=== PATIENT | male | born 1950 | race Caucasian/White ===

== ENCOUNTER 2020-09-24 01:24 | Emergency (ER) | payer MEDICARE, SELFPAY ==
--- NOTE | ~2020-09-24 | XR_ITS ---
XR chest 2V DATE: 09/24/2020 02:01 INDICATION: Palpitations TECHNIQUE: PA and lateral views COMPARISON: 08/16/2014 PA and lateral chest FINDINGS: There is bilateral hyperinflation consistent with chronic obstructive pulmonary disease. Th ere is bilateral upper lobe chronic volume loss and apical scarring, present on 08/16/2014. No pulmonary infiltrate or consolidation or pulmonary mass lesion is evident. Normal heart size. No hilar or mediastinal enlargement. IMPRESSION: COPD Chronic bilateral upper lobe scarring and volume loss No active cardiopulmonary disease or significant change since 08/16/2014 is detected Reviewed, dictated and finalized at location A. [employer] IMPRESSION: COPD Chronic bilateral upper lobe scarring and volume loss No active cardiopulmonary disease or significant change since 08/16/2014 is det ected
[2020-09-24 01:28] VITALS: BP 172/83; PULSE 94; RESP 16; TEMP 36.7; O2SAT 99
[2020-09-24 01:33] VITALS: BP 172/83; PULSE 94; RESP 24; O2SAT 100
--- NOTE | 2020-09-24 01:36 | ECG_ITS ---
Measurements Intervals [place] Rate: 86 P: 78 [place]: 139 QRS: 22 QRSD: 93 T: 81 QT: 376 QTc: 451 Interpretive Statements SINUS RHYTHM BORDERLINE R WAVE PROGRESSION, ANTERIOR LEADS BASELINE WANDER- I, AVR, AVL, AVF BORDERLINE ECG Electronically Signed On 09-24-2020 7:51:01 [employer] by Tito Tello D.O.
[2020-09-24 02:00] LABS: Basophils Percent Auto 0.6 % (0.2-1.2); Eosinophils Absolute Auto 0.1 K/mm3 (0-0.3); Eosinophils Percent Auto 0.7 % (0-4.4); Hematocrit 39.6 % (42.0-52.0); Hemoglobin 13.9 g/dL (14.0-18.0); Immature Granulocyte Absolute 0.02 K/mm3 (0.00-0.031); Immature Granulocyte Percent A 0.3 % (0-0.5); Lymphocytes Absolute Auto 1.39 K/mm3 (0.9-3.2); Lymphocytes Percent Auto 20.3 % (18.3-44.2); Mean Corpuscular HGB Conc 35.1 g/dl (32-36); Mean Corpuscular Hemoglobin 31.6 pg (26-34); Mean Platelet Volume 11.6 fl (7.4-10.4); Monocytes Absolute Auto 0.6 K/mm3 (0.1-0.6); Monocytes Percent Auto 9.3 % (2.6-8.5); Neutrophils Absolute Auto 4.7 K/mm3 (1.3-6.7); Neutrophils Percent Auto 68.8 % (45.5-73.1); Platelet Count Result 189 k/mm3 (150-375); Red Cell Distribution Width 11.9 % (11.5-14.5); White Blood Count 6.9 K/mm3 (4.5-10.0)
[2020-09-24 02:03] LABS: INR 1.1; Potassium 3.3 mmol/L (3.4-5.0); Prothrombin Time 14.4 Seconds (11.1-14.7)
[2020-09-24 02:04] LABS: Partial Thromboplastin Time 31.2 SECONDS (22.3-36.8)
[2020-09-24 02:05] LABS: Anion Gap 8 mmol/L (8-16); Blood Urea Nitrogen 14 mg/dL (9-20); Calcium 9.3 mg/dL (8.4-10.2); Carbon Dioxide 32 mmol/L (22-30); Chloride 98 mmol/L (98-107); Estimated CRCL calculation 83 ml/min; Estimated Glomerular Filt Rate > 60; Glucose 93 mg/dL (75-110); Sodium 138 mmol/L (137-145)
[2020-09-24 02:16] LABS: Troponin I < 0.012 ng/mL (0.000-0.034)
[2020-09-24 02:29] LABS: Magnesium 2.2 mg/dL (1.6-2.3)
[2020-09-24 02:43] VITALS: BP 133/71; PULSE 64; RESP 10; O2SAT 98
--- NOTE | 2020-09-24 02:45 | ED.GENADULT ---
HPI - General Adult General Chief complaint: Arrhythmia/Palpitations Stated complaint: palpitations Time Seen by Provider: 09/24/20 01:43 History of Present Illness HPI narrative: Patient is a 70-year-old gentleman who presents the emergency department with chief complaint of palpitations. Patient reports that over the last several days he has noticed that his heart has been skipping beats and has noticed that occasionally it is pounding a little bit faster and also heavier than normal. Patient denies shortness of breath denies chest pain denies syncope. Related Data Home Medications Medication Instructions Recorded Confirmed No Home Medications 09/24/20 Allergies Allergy/AdvReac Type Severity Reaction Status Date / Time penicillin G Allergy Mild Rash Verified 09/24/20 01:32 Sulfa (Sulfonamide Allergy Mild Rash Verified 09/24/20 01:32 Antibiotics) Tetanus Vaccines and Toxoid Allergy NAUSEA Verified 07/17/13 18:36 Review of Systems Review of Systems: Narrative: CONSTITUTIONAL: Denies fever, chills, or sweats. EYES: Denies visual changes, redness, or discharge. ENT: Denies rhinorrhea, congestion, sore throat, or otalgia. CARDIOVASCULAR: Denies chest pain, palpitations, or edema. RESPIRATORY: Denies cough or dyspnea. GASTROINTESTINAL: Denies abdominal pain, nausea, vomiting, or diarrhea. GENITOURINARY: Denies dysuria or hematuria. SKIN: Denies rash or itching. MUSCULOSKELETAL: Denies back pain, joint pain, or myalgia. NEUROLOGIC: Denies headache, numbness, or weakness. PSYCHIATRIC: Denies anxiety or depression. A 10 system review of systems was completed on the patient and is negative except for what is stated in the HPI. Nursing and ancillary documentation was reviewed. PMFSH Social History Social History Gender identity (if verbalized by the patient): Male Sexual Orientation (if Verbalized by the Patient): Straight or Heterosexual Comments Patient denies any significant past medical history Patient denies illicit drug use Exam Narrative: Exam Narrative: GENERAL: Well-appearing, well-nourished, and in no acute distress. HEAD: Normocephalic, atraumatic. EYES: PERRLA and EOMI. ENT: Nares clear, no rhinorrhea or epistaxis. Mucous membranes moist. NECK: Supple. CHEST: Clear to auscultation. No respiratory distress. HEART: Regular rate and rhythm. No murmur heard. Normal peripheral pulses. ABDOMEN: Soft, nontender, nondistended, normal active bowel sounds. EXTREMITIES: Normal range of motion. No edema. SKIN: Warm, dry, no rash. NEURO: No focal deficits. Alert and oriented x3. PSYCH: Normal mood and affect. Course Course Emergency Course: Patient's been observed in the emergency department has had some occasional PVCs but no significant dysrhythmia. Electrolytes are within normal limits the patient will be discharged home to follow-up with his primary care physician Vital Signs Vital signs: Vital Signs Temperature 36.7 C 09/24/20 01:28 Pulse Rate 94 09/24/20 01:28 Respiratory Rate 16 09/24/20 01:28 Blood Pressure 172/83 H 09/24/20 01:28 Pulse Oximetry 99 09/24/20 01:28 Temperature 36.7 C 09/24/20 01:28 Pulse Rate 64 09/24/20 02:43 Respiratory Rate 10 L 09/24/20 02:43 Blood Pressure 133/71 09/24/20 02:43 Pulse Oximetry 98 09/24/20 02:43 Medical Decision Making Vital Signs Vital Signs: Vital Signs Temperature 36.7 C 09/24/20 01:28 Pulse Rate 94 09/24/20 01:28 Respiratory Rate 16 09/24/20 01:28 Blood Pressure 172/83 H 09/24/20 01:28 Pulse Oximetry 99 09/24/20 01:28 Temperature 36.7 C 09/24/20 01:28 Pulse Rate 64 09/24/20 02:43 Respiratory Rate 10 L 09/24/20 02:43 Blood Pressure 133/71 09/24/20 02:43 Pulse Oximetry 98 09/24/20 02:43 Lab Data Result diagrams: 09/24/20 01:38 09/24/20 01:38 Labs: Lab Results 09/24/20 09/24/20 09/24/20 Range/Units 01:38 01:38 01:38 WBC 6.9
== END 2020-09-24 04:45 | disposition home or self-care (01) ==
PROVIDERS: Emergency Provider Emergency Medicine; PCP Internal Medicine
DX: R00.2 Palpitations (principal); I49.3 Ventricular premature depolarization; R94.31 Abnormal electrocardiogram [ECG] [EKG]
CPT/HCPCS: 36415; 71046; 80048; 83735; 84484; 85025; 85610; 85730; 93005; 99284

== ENCOUNTER 2023-05-28 04:37 | Emergency (ER) | payer MEDICARE, SELFPAY ==
[2023-05-28] VITALS (21 sets, daily range): BP systolic 138–166; BP diastolic 70–98; PULSE 61–90; RESP 12–23; TEMP 36.9; O2SAT 96–100
--- NOTE | ~2023-05-28 | XR_ITS ---
Clinical Indication: Chest pain PA and lateral views of the chest: Comparison: 09/24/2020 Findings: The lungs are clear, without evidence of focal consolidation or pleural effusion. COPD daniela jasmyn present. Cardiomediastinal silhouette is within normal limits. Bones and soft tissues are unremar kable. Impression: COPD. Clear lungs. Reviewed, dictated and finalized at location . Impression: COPD. Clear lungs.
--- NOTE | 2023-05-28 04:41 | ECG_ITS ---
Measurements Intervals [place] Rate: 86 P: 68 [place]: 124 QRS: 4 QRSD: 91 T: 54 QT: 380 QTc: 455 Interpretive Statements SINUS RHYTHM POSSIBLE LEFT ATRIAL ENLARGEMENT [-0.1mV P WAVE IN V1/V2] NONSPECIFIC ST & T-WAVE ABNORMALITY COMPARED TO ECG 09/24/2020 01:35:28 T-WAVE ABNORMALITY NOW PRESENT Electronically Signed On 05-28-2023 13:57:01 CDT by Leticia Blackmon M.D.
[2023-05-28] MEDS: ASPIRIN 81 MG CHEWABLE TABLET 324 MG PO (04:54)
[2023-05-28 05:04] LABS: INR 1.1; Prothrombin Time 14.5 Seconds (11.1-14.7)
[2023-05-28 05:05] LABS: Partial Thromboplastin Time 32.1 SECONDS (22.3-36.8)
--- NOTE | 2023-05-28 05:06 | ED.GENADULT ---
HPI - General Adult General Chief complaint: Chest Pain <Homero Holbrook MD - Last Filed: 05/28/23 06:44> Stated complaint: Chest tightness, pounding heart <Homero Holbrook MD - Last Filed: 05/28/23 06:44> Time Seen by Provider: 05/28/23 04:58 <Homero Holbrook MD - Last Filed: 05/28/23 06:44> History of Present Illness HPI narrative: Patient is a 72-year-old gentleman presents emerged from with chief complaint of chest pains and palpitations. The patient reports that he has noticed that as he has been mowing his yard at times he gets a tightness sensation in his chest patient states it goes away whenever he rest and reports that he has not had this until recently patient states that today he was mowing his yard in the afternoon and reports that he has not followed up with his primary over the symptoms. Patient reports that later this evening he had had the episode stopped and his pain was resolved the patient went to sleep and woke up and was feeling as though his heart was beating heavier than normal patient reports that he had no chest pain during this episode patient also reports that he noticed his blood pressure this evening was running higher than normal <Homero Holbrook MD - Last Filed: 05/28/23 06:44> Related Data Home medications: Home Medications Medication Instructions Recorded Confirmed No Home Medications 09/24/20 <Homero Holbrook MD - Last Filed: 05/28/23 06:44> Allergies/adverse reactions: Allergies Allergy/AdvReac Type Severity Reaction Status Date / Time penicillin G Allergy Mild Rash Verified 09/24/20 01:32 Sulfa (Sulfonamide Allergy Mild Rash Verified 09/24/20 01:32 Antibiotics) Tetanus Vaccines and Toxoid Allergy NAUSEA Verified 07/17/13 18:36 <Homero Holbrook MD - Last Filed: 05/28/23 06:44> Review of Systems Review of Systems: A 10 system review of systems was completed on the patient and is negative except for what is stated in the HPI. Nursing and ancillary documentation was reviewed. <Homero Holbrook MD - Last Filed: 05/28/23 06:44> [facility] Social History Social History: Social History Gender identity (if verbalized by the patient): Male Sexual Orientation (if Verbalized by the Patient): Straight or Heterosexual <Homero Holbrook MD - Last Filed: 05/28/23 06:44> Exam Narrative: GENERAL: Well-appearing, well-nourished, and in no acute distress. HEAD: Normocephalic, atraumatic. EYES: PERRLA and EOMI. ENT: Nares clear, no rhinorrhea or epistaxis. Mucous membranes moist. NECK: Supple. CHEST: Clear to auscultation. No respiratory distress. HEART: Regular rate and rhythm. No murmur heard. Normal peripheral pulses. ABDOMEN: Soft, nontender, nondistended, normal active bowel sounds. EXTREMITIES: Normal range of motion. No edema. SKIN: Warm, dry, no rash. NEURO: No focal deficits. Alert and oriented x3. PSYCH: Normal mood and affect. <Homero Holbrook MD - Last Filed: 05/28/23 06:44> Course Vital Signs Vital signs: Vital Signs Temperature 98.4 F 05/28/23 04:50 Pulse Rate 90 05/28/23 04:50 Respiratory Rate 14 05/28/23 04:50 Blood Pressure 157/85 H 05/28/23 04:50 Pulse Oximetry 100 05/28/23 04:50 Oxygen Delivery Room Air 05/28/23 04:50 Temperature 98.4 F 05/28/23 04:50 Pulse Rate 70 05/28/23 08:42 Respiratory Rate 16 05/28/23 08:42 Blood Pressure 143/80 H 05/28/23 08:42 Pulse Oximetry 100 05/28/23 08:42 Oxygen Delivery Room Air 05/28/23 04:50 <Homero Holbrook MD - Last Filed: 05/28/23 06:44> Vital Signs Temperature 98.4 F 05/28/23 04:50 Pulse Rate 90 05/28/23 04:50 Respiratory Rate 14 05/28/23 04:50 Blood Pressure 157/85 H 05/28/23 04:50 Pulse Oximetry 100 05/28/23 04:50 Oxygen Delivery Room Air
[2023-05-28 05:07] LABS: Basophils Absolute Auto 0.1 K/mm3 (0.0-0.1); Basophils Percent Auto 0.9 % (0.2-1.2); Eosinophils Absolute Auto 0.2 K/mm3 (0-0.3); Eosinophils Percent Auto 3.5 % (0-4.4); Hematocrit 40.8 % (42.0-52.0); Immature Granulocyte Absolute 0.01 K/mm3 (0.00-0.031); Immature Granulocyte Percent A 0.2 % (0-0.5); Lymphocytes Absolute Auto 1.82 K/mm3 (0.9-3.2); Lymphocytes Percent Auto 27.5 % (18.3-44.2); Mean Corpuscular HGB Conc 34.3 g/dl (32-36); Mean Corpuscular Hemoglobin 31.3 pg (26-34); Mean Corpuscular Volume 91.3 fl (80-100); Mean Platelet Volume 12.3 fl (7.4-10.4); Monocytes Absolute Auto 0.6 K/mm3 (0.1-0.6); Monocytes Percent Auto 9.5 % (2.6-8.5); Neutrophils Absolute Auto 3.9 K/mm3 (1.3-6.7); Neutrophils Percent Auto 58.4 % (45.5-73.1); Platelet Count Result 164 k/mm3 (150-375); Red Blood Count 4.47 M/mm3 (4.6-6.20); Red Cell Distribution Width 12.2 % (11.5-14.5); White Blood Count 6.6 K/mm3 (4.5-10.0)
[2023-05-28 05:09] LABS: Alanine Aminotransferase 23 U/L (6-50); Albumin Level 4.7 g/dL (3.5-5.1); Alkaline Phosphatase 70 U/L (38-126); Anion Gap 6 mmol/L (8-16); Aspartate Amino Transferase 25 U/L (17-59); Blood Urea Nitrogen 16 mg/dL (9-20); Calcium 9.2 mg/dL (8.4-10.2); Carbon Dioxide 33 mmol/L (22-30); Chloride 100 mmol/L (98-107); Estimated CRCL calculation 64 ml/min; Estimated Glomerular Filt Rate > 60; Glucose 91 mg/dL (65-110); Lipase 208 U/L (23-300); Potassium 3.7 mmol/L (3.4-5.0); Sodium 139 mmol/L (137-145)
[2023-05-28 05:20] LABS: Troponin I 0.018 ng/mL (0.000-0.034)
[2023-05-28 08:24] LABS: Troponin I 0.019 ng/mL (0.000-0.034)
== END 2023-05-28 08:43 | disposition home or self-care (01) ==
PROVIDERS: Emergency Provider Emergency Medicine; PCP Internal Medicine
DX: R07.89 Other chest pain (principal)
CPT/HCPCS: 36415; 71046; 80053; 83690; 84484; 85025; 85610; 85730; 93005; 99284; A9270

== ENCOUNTER 2023-06-11 17:37 | Emergency (ER) | payer MEDICARE, SELFPAY ==
[2023-06-11 17:38] VITALS: BP 152/77; PULSE 99; RESP 16; TEMP 36.8; O2SAT 99
--- NOTE | 2023-06-11 21:13 | PC.NURSE ---
Patient named called twice in triage without response. Patient not found in waiting room or outside the ER doors.
== END 2023-06-11 21:13 | disposition left against medical advice (07) ==
PROVIDERS: PCP Internal Medicine
DX: R00.2 Palpitations (principal)
CPT/HCPCS: 99199